=== PATIENT | female | born 1995 | race Caucasian/White ===

== ENCOUNTER 2017-05-03 10:35 | Inpatient (IN) ==
[2017-05-03] MEDS ORDERED: KEFZOL 1 GM/D5W 1 GM/50 ML IVPB IV PRN (21:06)
[2017-05-03] MEDS ORDERED: ZOFRAN IV PRN (21:06)
[2017-05-03] MEDS ORDERED: PEPCID PO PRN (21:06)
[2017-05-03] MEDS ORDERED: AMBIEN PO PRN (21:06)
[2017-05-03] MEDS ORDERED: STADOL IV PRN ×3 (21:06)
[2017-05-03] MEDS ORDERED: BRETHINE SUBQ PRN (21:06)
[2017-05-03] MEDS ORDERED: TYLENOL PO PRN (21:06)
[2017-05-03] MEDS ORDERED: PEPCID IV PRN (21:06)
[2017-05-03] MEDS: LR 1,000 ML IV SCH (21:40)
[2017-05-03 22:08] LABS: MANUAL DIFF NEEDED? NO
[2017-05-03 22:14] LABS: BASO% 0.2 % (0.0-0.8); EOS# 0.05 X1000 (0.0-0.7); EOS% 0.3 % (0.0-10.0); HEMATOCRIT 31.7 % (37.0-47.0); HEMOGLOBIN 9.9 g/dL (12.0-16.0); IMM GRAN# 0.05 X1000 (0.0-0.04); IMM GRAN% 0.3 % (0.0-0.5); LYMPH# 4.52 X1000 (1.2-3.4); LYMPH% 29.9 % (20.5-51.1); MCH 22.2 PG (27-31); MCHC 31.2 g/dL (33-37); MCV 71.1 FL (81-99); MONO# 1.21 X1000 (0.11-0.59); MPV 10.9 FL (7.4-10.4); NEUT% 61.3 % (42.2-75.2); PLT 396 X1000 (130-400); RBC 4.46 XMIL (4.2-5.4)
[2017-05-03 22:22] LABS: URINE SOURCE VOIDED
[2017-05-03 22:26] LABS: BILIRUBIN URINE NEGATIVE (NEGATIVE); BLOOD URINE NEGATIVE (NEGATIVE); CLARITY SL. CLOUDY (CLEAR); COLOR YELLOW; GLUCOSE URINE NEGATIVE (NEGATIVE); LEUKOCYTES URINE 1+ (NEGATIVE); NITRITE URINE NEGATIVE (NEGATIVE); PROTEIN URINE NEGATIVE (NEGATIVE); UROBILINOGEN URINE NORMAL
[2017-05-03 22:28] LABS: UR AMPHETAMINES QUAL NONE DETECTED (NONE DETECT); UR BARBITUATES QUAL NONE DETECTED (NONE DETECT); UR BENZODIAZEPIN QUAL NONE DETECTED (NONE DETECT); UR CANNABINOIDS QUAL NONE DETECTED (NONE DETECT); UR COCAINE QUAL NONE DETECTED (NONE DETECT); UR MDMA QUAL NONE DETECTED (NONE DETECT); UR METHADONE QUAL NONE DETECTED (NONE DETECT); UR METHAMPHETAMINE QUAL NONE DETECTED (NONE DETECT); UR OPIATES QUAL NONE DETECTED (NONE DETECT); UR OXYCODONE QUAL NONE DETECTED (NONE DETECT); UR PCP QUAL NONE DETECTED (NONE DETECT); UR TCA QUAL NONE DETECTED (NONE DETECT)
[2017-05-04] MEDS ORDERED: CYTOTEC PO ONE (03:00)
[2017-05-04] MEDS ORDERED: PITOCIN 30 UNITS/LR 30 UNITS/500 ML IV.SOLN IV SCH (07:00)
[2017-05-04] MEDS ORDERED: FENTANYL-BUPIV-NS 2 MCG-0.1% 200 ML EPIDURAL PRN (07:41)
[2017-05-04] MEDS: LR 1,000 ML IV SCH ×2 (07:47→09:27)
[2017-05-04] MEDS ORDERED: CYTOTEC PO PRN (10:16)
[2017-05-04] MEDS ORDERED: M-M-R II VACCINE SUBQ ONE (10:16)
[2017-05-04] MEDS ORDERED: BENADRYL IV PRN (10:16)
[2017-05-04] MEDS ORDERED: AMBIEN PO PRN (10:16)
[2017-05-04] MEDS ORDERED: HYDROXYZINE PO PRN (10:16)
[2017-05-04] MEDS ORDERED: BOOSTRIX VACCINE IM ONE (10:16)
[2017-05-04] MEDS ORDERED: MINERAL OIL PO PRN (10:16)
[2017-05-04] MEDS ORDERED: NORCO-5 PO PRN (10:16)
[2017-05-04] MEDS ORDERED: BENADRYL PO PRN (10:16)
[2017-05-04] MEDS ORDERED: XYLOCAINE-MPF 1% INJ PRN (10:16)
[2017-05-04] MEDS ORDERED: PITOCIN 20 UNITS/LR 20 UNITS/1,000 ML IV.SOLN IV SCH (10:16)
[2017-05-04] MEDS ORDERED: HYDROXYZINE IM PRN (10:16)
[2017-05-04] MEDS ORDERED: PITOCIN 30 UNITS/LR 30 UNITS/500 ML IV.SOLN IV ONE (10:16)
[2017-05-04] MEDS ORDERED: PERI MEDS (DERMOPLAST/NUPERCAINAL/TUCKS) MISC PRN (10:16)
[2017-05-04] MEDS ORDERED: PITOCIN IM PRN (10:16)
[2017-05-04] MEDS: NORCO-10 PO PRN ×2 (14:46→19:49)
[2017-05-04] MEDS: MOTRIN PO PRN ×2 (14:47→23:57)
[2017-05-04] MEDS ORDERED: PERICOLACE PO SCH (21:00)
[2017-05-05 06:40] LABS: HEMATOCRIT 31.5 % (37.0-47.0); HEMOGLOBIN 9.5 g/dL (12.0-16.0); MCH 21.7 PG (27-31); MCHC 30.2 g/dL (33-37); MCV 72.1 FL (81-99); MPV 10.8 FL (7.4-10.4); RBC 4.37 XMIL (4.2-5.4)
[2017-05-05] MEDS: MOTRIN PO PRN (09:11)
[2017-05-05] MEDS: NORCO-10 PO PRN (09:11)
[2017-05-05 10:07] VITALS: BP 89/52
== END 2017-05-05 11:15 | disposition home or self-care (01) ==
LOC: P.LD 19:20 → MERGE 19:20 → P.WC 05-04 13:46
PROVIDERS: ADMIT Obstetrics & Gynecology; ATTEND Obstetrics & Gynecology